=== PATIENT | male | born 1990 | race Hispanic/Latino ===

== ENCOUNTER 2021-08-10 17:08 | Emergency (ER) | payer SELFPAY ==
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
[2021-08-10 20:20] VITALS: TEMP 98.6
[2021-08-10 20:23] VITALS: BP 118/78; O2SAT 96
== END 2021-08-10 20:14 | disposition home or self-care (01) ==
LOC: ER 17:08
DX: R06.02 Shortness of breath (principal); F17.210 Nicotine dependence, cigarettes, uncomplicated
CPT/HCPCS: 71045; 99283